=== PATIENT | female | born 1995 | race Caucasian/White ===

== ENCOUNTER 2017-12-16 08:04 | Emergency (ER) | payer BC ==
[2017-12-16 08:11] VITALS: TEMP 97.9
--- NOTE | 2017-12-16 08:37 | EDPHY ---
H & P Stated Complaint: n/v/d HPI/ROS: CHIEF COMPLAINT: Vomiting, diarrhea. HISTORY OF PRESENT ILLNESS: This patient is a 22 year old female arriving with her friend complaining of nausea and vomiting onset this morning. She had several beers yesterday evening , but did not consume an unusually large amount for her. She endorses discomfort in her stomach which began yesterday during the day. This is a right- sided "squeezing" sensation which radiates across to the left. She began vomiting this morning around 6:00am and has vomited several times. She has had diarrhea twice this morning as well. She denies eating any usual foods. No history of abdominal surgeries. She denies fever, dysuria, chest pain, shortness of breath, or other associated symptoms. She denies possibility of . REVIEW OF SYSTEMS: A ten point review of systems was performed and is negative with the exception of the items mentioned in the HPI. Past medical history: Denies. Past surgical history: Noncontributory. Family history: Noncontributory. Social history: Works at [employer] Nonsmoker. Friend at bedside. General Appearance: Alert. Vital signs reviewed. Blood pressure 117/88 at triage. Eyes: Pupils equal and round, no conjunctival injection, no discharge. Anicteric. ENT, Mouth: Mucous membranes are moist, no oropharyngeal erythema or edema. Neck: No lymphadenopathy, supple. Respiratory: Lungs are clear to auscultation; no wheezes, rales, or rhonchi. Cardiovascular: Regular rate and rhythm; no murmur, rub, or gallop. Gastrointestinal: Diffuse abdominal tenderness, especially in right upper quadrant. No guarding.Abdomen is soft, no masses or organomegaly, bowel sounds reduced. Skin: Warm and dry, no rashes on exposed skin, normal color. Back: Nontender to palpation over the thoracolumbar spine. No CVAT. Extremities: No lower extremity edema, no calf tenderness or swelling. Neurological: Alert and oriented. Moving all four extremities easily and equally. Psychiatric: Normal affect. - Personal History LMP (Females 10-55): Now Current Tetanus/Diphtheria Vaccine: Yes Current Tetanus Diphtheria and Acellular Pertussis (TDAP): Yes Tetanus Vaccine Date: 2010 - Medical/Surgical History Hx Asthma: Yes Hx Chronic Respiratory Disease: No Hx Diabetes: No Hx Cardiac Disease: No Hx Renal Disease: No Hx Cirrhosis: No Hx Alcoholism: No Hx HIV/AIDS: No Hx Splenectomy or Spleen Trauma: No Other PMH: cheek bone fx, asthma, - Social History Smoking Status: Never smoked Constitutional: Initial Vital Signs Temperature (C) 36.6 C 12/16/17 08:07 Heart Rate 85 12/16/17 08:07 Respiratory Rate 16 12/16/17 08:07 Blood Pressure 117/88 H 12/16/17 08:07 O2 Sat (%) 99 12/16/17 08:07 O2 Delivery Mode Room Air Allergies/Adverse Reactions: No Known Allergies Allergy (Verified 12/16/17 08:07) Home Medications: Medication Instructions Recorded Ondansetron Odt [Zofran Odt 4 mg 4 mg PO Q4 PRN #10 tab 12/16/17 (RX)] Medical Decision Making ED Course/Re-evaluation: 22 year old female presents with nausea and vomiting plus diarrhea onset this morning. Exam reveals diffuse abdominal tenderness, particularly in the right upper quadrant. Administered 4mg IV Zofran and 1L IV NS for symptom relief. Plan for labs including CBC, chemistries, lipase. Patient continues to feel unwell and is vomiting. Plan to administer 12.5mg IV Phenergan. Laboratory studies unremarkable. Vomiting has stopped. No diarrhea in ED. LFTs and lipase WNL. Cholecystitis, pancreatitis less likely with these labs. No tenderness in either lower quadrant on re-exam. I do not suspect ovarian torsion, ovarian cyst, or appendicitis. I think this is likely a gastroenteritis. 11:38 Reassessed patient. She is feeling well after Phenergan administration. Plan to discharge home in good condition with prescription for Zofran for nausea relief. Plan for PO challenge with ice chips. Follow up and return precautions discussed. She is comfortable with this plan. - Data Points Laboratory Results: Laboratory Results 12/16/17 08:30 12/16/17 08:30 Medications Given: Discontinued Medications Ondansetron HCl (Zofran) 4 mg IVP EDNOW ONE Stop: 12/16/17 08:40 Last Admin: 12/16/17 08:41 Dose: 4 mg Promethazine HCl (Phenergan) 12.5 mg IVP ONCE ONE Stop: 12/16/17 09:55 Last Admin: 12/16/17 09:57 Dose: 12.5 mg Departure - Departure Disposition: Home, Routine, Self-Care Clinical Impression: Acute gastroenteritis Condition: Good Instructions: Gastroenteritis (ED) Additional Instructions: 1. Take Zofran as prescribed as needed for nausea. You may take over-the- counter antidiarrheal medications as well. 2. Follow a clear liquid diet when you are able. Introduce bland foods as tolerated. 3. Follow up with your primary care provider for further evaluation. 4. Return to the emergency department for fever, severe abdominal pain, uncontrollable vomiting or diarrhea, or other worsening of condition. Referrals: Devante Dudley DO [Doctor of Osteopathy] - As per Instructions Prescriptions: Ondansetron Odt [Zofran Odt 4 mg (RX)] 4 mg PO Q4 PRN #10 tab PRN Reason: nausea Report Scribed for: Norma Casey Report Scribed by: Fadia Patel Date of Report: 12/16/17 Time of Report: 10:01 Physician Review and Approval Statement: 12/16/17 08:37 Portions of this note were transcribed by the nurses medical assistants phlebotomists. I, Dr. Norma Casey, personally performed the history, physical exam, and medical decision- making; and confirmed the accuracy of the information in the transcribed note.
[2017-12-16] MEDS ORDERED: ONDANSETRON 4 MG/2 ML VIAL IVP ONE (08:39)
[2017-12-16 09:52] LABS: PLATELET COUNT 327 10^3/uL (150-400)
[2017-12-16] MEDS ORDERED: PROMETHAZINE HCL 25 MG/ML INJ IVP ONE (09:54)
[2017-12-16 13:12] VITALS: BP 113/74; PULSE 88; RESP 18; O2SAT 96
== END 2017-12-16 13:11 | disposition home or self-care (01) ==
DX: K52.9 Noninfective gastroenteritis and colitis, unspecified (principal); J45.909 Unspecified asthma, uncomplicated
CPT/HCPCS: 96374; J2405; J2550